=== PATIENT | female | born 1945 | race Caucasian/White ===

== ENCOUNTER → 2018-01-17 11:06 | Outpatient (REF) | payer OTHER, MEDICAID, SELFPAY ==
[2018-01-17 12:06] LABS: Bilirubin Small (Negative); Blood Negative (Negative); Clarity Cloudy; Glucose Negative (Negative); Ketones Trace mg/dL (Negative); Leukocyte Esterase Negative (Negative); Nitrite Negative (Negative); Specific Gravity 1.025 (1.005-1.025); pH 5.5 (5-8)
[2018-01-17 12:22] LABS: Bacteria Negative HPF (Negative); C & S Indicated? No; Casts Negative LPF (Negative); Crystals Many Amorphous HPF (Negative); Epithelial Cells Negative HPF (Negative); Mucus Negative (Negative); Other Cells Negative (Negative); RBC Negative (0-2); WBC Negative HPF (0-5)
== END ==
LOC: LBN 11:06
PROVIDERS: PCP Family Medicine; Visit Provider Emergency Medicine
DX: N39.0 Urinary tract infection, site not specified (principal)
CPT/HCPCS: 81003; 81015

== ENCOUNTER 2018-11-19 14:45 | Outpatient (REF) | payer OTHER, MEDICAID, SELFPAY ==
[2018-11-19 16:05] LABS: Bilirubin Negative (Negative); Blood Negative (Negative); Clarity Cloudy; Glucose Negative (Negative); Ketones Trace mg/dL (Negative); Leukocyte Esterase Small (Negative); Nitrite Negative (Negative); Specific Gravity 1.025 (1.005-1.025); Urobilinogen 0.2 EU/dL (Up TO 0.2); pH 5.5 (5-8)
[2018-11-19 17:12] LABS: Bacteria Many HPF (Negative); C & S Indicated? Yes; Casts Negative LPF (Negative); Crystals Rare Calcium Oxalate HPF (Negative); Epithelial Cells Rare HPF (Negative); Mucus Negative (Negative); Other Cells Negative (Negative); RBC Negative (0-2)
== END 2018-11-19 15:05 ==
LOC: LBN 14:45
PROVIDERS: PCP Family Medicine; Visit Provider Family Medicine
DX: N89.8 Other specified noninflammatory disorders of vagina (principal); R53.83 Other fatigue
CPT/HCPCS: 81003; 81015; 87086

== ENCOUNTER 2019-02-05 09:22 | Outpatient (CLI) | payer OTHER, MEDICAID, SELFPAY | END 2019-02-05 09:42 | PROVIDERS: PCP Family Medicine; Visit Provider Family Medicine | DX: Z51.5 Encounter for palliative care (principal); F03.90 Unspecified dementia, unspecified severity, without behavioral disturbance, psychotic disturbance, mood disturbance, and anxiety | CPT/HCPCS: 99305 ==

== ENCOUNTER 2019-02-06 11:46 | Outpatient (REF) | payer OTHER, MEDICAID, SELFPAY ==
[2019-02-06 13:55] LABS: Abs Immature Grans 0.01 k/cumm (0.0-0.09); Absolute Basophil Count 0.01 k/cumm (0.0-0.2); Absolute Eosinophil Count 0.13 k/cumm (0.0-0.7); Absolute Lymphocyte Count 1.43 k/cumm (1.2-3.4); Absolute Monocyte Count 0.38 k/cumm (0.11-0.7); Absolute Neutrophil Count 3.26 k/cumm (1.2-6.7); Basophils % 0.2; Eosinophils % 2.5; HCT 46.3 % (36.0-46.0); HGB 15.1 g/dL (12.0-15.5); Immature Grans % 0.2; Lymphocytes % 27.4; Mean Corp. HGB Concentration 32.6 g/dL (32.0-36.0); Mean Corpuscular Hemoglobin 31.2 pg (27.0-33.0); Mean Corpuscular Volume 95.7 fL (80-95); Mean Platelet Volume 11.2 fL (8.0-11.0); Monocytes % 7.3; Neutrophils % 62.4; Platelet Count 297 x1000/uL (130-400); RBC 4.84 m/cumm (4.00-5.20); RBC Distribution Width 13.5 % (11.7-14.6); White Blood Cell Count 5.22 k/cumm (4.4-10.8)
[2019-02-06 14:23] LABS: Anion Gap 9.8 mmol/L (3-11); BUN 14 mg/dL (7-18); CO2 28.2 mmol/L (21.0-32.0); CREATININE 0.63 mg/dL (0.55-1.02); Calcium 9.8 mg/dL (8.5-10.1); Chloride 106 mmol/L (98-107); Glucose 134 mg/dL (70-100); Potassium 4.4 mmol/L (3.5-5.1); Sodium 144 mmol/L (136-145); TSH 2.44 uIU/mL (0.36-3.74)
== END 2019-02-06 12:06 ==
LOC: LBN 11:46
PROVIDERS: PCP Family Medicine; Visit Provider Nurse Practitioner Adult Health
DX: E03.9 Hypothyroidism, unspecified (principal); R19.7 Diarrhea, unspecified; E78.5 Hyperlipidemia, unspecified; F41.9 Anxiety disorder, unspecified
CPT/HCPCS: 80048; 84443; 85025

== ENCOUNTER 2020-01-25 08:44 | Outpatient (CLI) | payer OTHER, MEDICAID, SELFPAY ==
[2020-01-26 14:53] LABS: COVID-19 RT-PCR Result NEGATIVE (Negative)
== END 2020-01-25 09:04 ==
PROVIDERS: PCP Family Medicine; Visit Provider Nurse Practitioner Family
DX: Z01.89 Encounter for other specified special examinations (principal)
CPT/HCPCS: U0003

== ENCOUNTER → 2020-02-01 14:07 | Outpatient (REF) | payer OTHER, MEDICAID, SELFPAY ==
[2020-02-02 20:05] LABS: COVID-19 RT-PCR Result Not Detected ((See Note))
== END ==
LOC: LBN 14:07
PROVIDERS: PCP Family Medicine; Visit Provider Nurse Practitioner Adult Health
DX: Z11.59 Encounter for screening for other viral diseases (principal)
CPT/HCPCS: U0003

== ENCOUNTER 2020-02-08 13:34 | Outpatient (REF) | payer OTHER, MEDICAID, SELFPAY ==
[2020-02-09 18:37] LABS: COVID-19 RT-PCR Result Not Detected ((See Note))
== END 2020-02-08 13:54 ==
LOC: LBN 13:34
PROVIDERS: PCP Family Medicine; Visit Provider Nurse Practitioner Adult Health
DX: Z11.59 Encounter for screening for other viral diseases (principal)
CPT/HCPCS: U0003

== ENCOUNTER 2020-02-22 15:33 | Outpatient (REF) | payer OTHER, MEDICAID, SELFPAY ==
[2020-02-22 16:23] LABS: Abs Immature Grans 0.04 10^3/uL (0.0-0.06); Absolute Basophil Count 0.02 10^3/uL (0.0-0.2); Absolute Lymphocyte Count 0.45 10^3/uL (1.2-3.4); Absolute Monocyte Count 0.71 10^3/uL (0.1-0.8); Absolute Neutrophil Count 10.44 10^3/uL (1.2-6.7); Basophils % 0.2; HCT 48.7 % (36.0-46.0); HGB 15.5 g/dL (11.2-15.7); Immature Grans % 0.3; Lymphocytes % 3.9; MCH 31.2 pg (27.0-33.0); MCHC 31.8 % (32.0-36.0); MPV 10.6 fL (8.0-11.0); Monocytes % 6.1; Neutrophils % 89.5; Nucleated RBC 0 %; Platelet Count 206 10^3/uL (130-400); RBC 4.97 10^6/uL (3.93-5.22); RDW 12.6 % (11.7-14.6); RDW-SD 45.5 fL; WBC 11.66 10^3/uL (4.4-10.8)
[2020-02-22 16:52] LABS: ALT 18 U/L (14-59); AST 30 U/L (15-37); Alkaline Phosphatase 78 U/L (46-116); Anion Gap 8.5 mmol/L (3-11); BUN 20 mg/dL (7-18); Bilirubin, Total 0.5 mg/dL (0.2-1.0); CO2 29.5 mmol/L (21.0-32.0); CREATININE 0.88 mg/dL (0.55-1.02); Calcium 9.6 mg/dL (8.5-10.1); Chloride 107 mmol/L (98-107); Glucose 164 mg/dL (74-106); Sodium 145 mmol/L (136-145); Total Protein 6.4 g/dL (6.4-8.2)
== END 2020-02-22 15:53 ==
LOC: LBN 15:33
PROVIDERS: PCP Family Medicine; Visit Provider Family Medicine
DX: R79.89 Other specified abnormal findings of blood chemistry (principal); R68.89 Other general symptoms and signs; F41.9 Anxiety disorder, unspecified; E03.9 Hypothyroidism, unspecified; E78.5 Hyperlipidemia, unspecified
CPT/HCPCS: 80053; 85025

== ENCOUNTER → 2020-02-23 15:46 | Outpatient (REF) | payer OTHER, MEDICAID, SELFPAY ==
[2020-02-23 19:38] LABS: Bilirubin Negative (Negative); Blood Negative (Negative); Clarity Turbid (Clear); Glucose Negative (Negative); Ketones Negative (Negative); Leukocyte Esterase Negative (Negative); Nitrite Negative (Negative); Specific Gravity >= 1.030 (1.005-1.025); Urobilinogen 0.2 EU/dL (Up TO 0.2); pH 5.5 (5-8)
== END ==
LOC: LBN 15:46
PROVIDERS: PCP Family Medicine; Visit Provider Nurse Practitioner Adult Health
DX: N39.0 Urinary tract infection, site not specified (principal)
CPT/HCPCS: 81003; 87086